=== PATIENT | male | born 1970 | race Caucasian/White ===

== ENCOUNTER 2021-07-23 11:47 | Emergency (ER) | payer BC ==
[2021-07-23] MEDS ORDERED: ALBUTEROL HFA INHALER INHALATION STA (13:15)
--- NOTE | 2021-07-23 13:35 | ED ---
General Adult HPI - General Chief complaint: Abdominal Pain Stated complaint: congestion, abd pain Time Seen by Provider: 07/23/21 12:30 Source: patient, RN notes reviewed, old records reviewed Mode of arrival: ambulatory - History of Present Illness Initial comments: This is a 51-year-old male who presents emergency department stating that on Thursday he started having some congestion and then on Thursday he started coughing and coughing up some yellow greenish sputum and then today he was coughing up some brown or bloody sputum. Patient states the pain in his chest is only there when he coughs per patient states is the rest here comfortably currently he is in no pain. Patient states he also has a little bit of a hernia in his abdomen and that her out hurts when he coughs as well. Again if he remains still and not coughing he does not have any pain in his chest or a bdomen. - Related Data Previous Rx's Medication Instructions Recorded Albuterol Inhaler [Ventolin Hfa 2 puff INHALATION RT-QID #18 gm 07/23/21 Inhaler] Azithromycin [Zithromax Tri-Mason] 500 mg PO DAILY #3 tab 07/23/21 Allergies Allergy/AdvReac Type Severity Reaction Status Date / Time No Known Allergies Allergy Verified 07/23/21 12:37 Review of Systems ROS Statement: Those systems with pertinent positive or pertinent negative responses have been documented in the HPI. ROS Other: All systems not noted in ROS Statement are negative. Past Medical History Past Medical History: Hypertension Additional Past Medical History / Comment(s): hernia History of Any Multi-Drug Resistant Organisms: None Reported Past Surgical History: Orthopedic Surgery Past Psychological History: No Psychological Hx Reported Smoking Status: Former smoker Past Alcohol Use History: Occasional Past Drug Use History: None Reported General Exam - General Exam Comments Initial Comments: GENERAL: Patient is well-developed and well-nourished. Patient is nontoxic and well- hydrated and is in mild distress. ENT: Neck is soft and supple. No significant lymphadenopathy is noted. Oropharynx is clear. Moist mucous membranes. Neck has full range of motion without eliciting any pain. EYES: The sclera were anicteric and conjunctiva were pink and moist. Extraocular movements were intact and pupils were equal round and reactive to light. Eyelids were unremarkable. PULMONARY: Unlabored respirations. Good breath sounds bilaterally. No audible rales rhonchi or wheezing was noted. CARDIOVASCULAR: There is a regular rate and rhythm without any murmurs gallops or rubs. Chest pain is reproducibly tender ABDOMEN: Soft and nontender with normal bowel sounds. Epigastric is mildly tender. SKIN: Skin is clear with no lesions or rashes and otherwise unremarkable. NEUROLOGIC: Patient is alert and oriented x3. Cranial nerves II through XII are grossly intact. Motor and sensory are also intact. Normal speech, volume and content. Symmetrical smile. MUSCULOSKELETAL: Normal extremities with adequate strength and full range of motion. No lower extremity swelling or edema. No calf tenderness. LYMPHATICS: No significant lymphadenopathy is noted PSYCHIATRIC: Normal psychiatric evaluation. Course Vital Signs 07/23/21 12:33 Temperature 98.4 F Pulse Rate 73 Respiratory 18 Rate Blood Pressure 138/81 O2 Sat by Pulse 97 Oximetry Medical Decision Making - Medical Decision Making EKG shows normal sinus rhythm at 72 bpm IN interval is 178 QRSs under QT interval 420 QTC is 459 per patient's EKG shows no ST segment elevation or depression. Chest x-ray shows no acute abnormality. I went back into the room to reevaluate the patient he was sleeping comfortably. I awoke him he stated he felt much better within the happy be discharged home. Patient received 1 g Rocephin emergency department and will be sent home with Zithromax. - Lab Data Result diagrams: 07/23/21 13:47 07/23/21 13:47 Lab Results 07/23/21 07/23/21 07/23/21 Range/Units 13:47 13:47 13:47 WBC 5.2 (3.8-10.6) k/uL RBC 5.01 (4.30-5.90) m/uL Hgb 14.0 (13.0-17.5) gm/dL Hct 43.6 (39.0-53.0) % MCV 87.0 (80.0-100.0) fL MCH 28.0 (25.0-35.0) pg MCHC 32.1 (31.0-37.0) g/dL RDW 14.3 (11.5-15.5) % Plt Count 280 (150-450) k/uL MPV 6.9 Neutrophils % 60 % Lymphocytes % 21 % Monocytes % 7 % Eosinophils % 8 % Basophils % 1 % Neutrophils # 3.1 (1.3-7.7) k/uL Lymphocytes # 1.1 (1.0-4.8) k/uL Monocytes # 0.4 (0-1.0) k/uL Eosinophils # 0.4 (0-0.7) k/uL Basophils # 0.0 (0-0.2) k/uL PT 10.6 (9.0-12.0) sec INR 1.0 (<1.2) APTT 24.0 (22.0-30.0) sec D-Dimer 0.34 (<0.60) mg/L FEU Sodium (137-145) mmol/L Potassium (3.5-5.1) mmol/L Chloride (98-107) mmol/L Carbon Dioxide (22-30) mmol/L Anion Gap mmol/L BUN (9-20) mg/dL Creatinine (0.66-1.25) mg/dL Est GFR (CKD-EPI)AfAm (>60 ml/min/1.73 sqM) Est GFR (CKD-EPI)NonAf (>60 ml/min/1.73 sqM) Glucose (74-99) mg/dL Plasma Lactic Acid Charles (0.7-2.0) mmol/L Calcium (8.4-10.2) mg/dL Magnesium (1.6-2.3) mg/dL Total Bilirubin (0.2-1.3) mg/dL AST (17-59) U/L ALT (4-49) U/L Alkaline Phosphatase (38-126) U/L Troponin I (0.000-0.034) ng/mL Total Protein (6.3-8.2) g/dL Albumin (3.5-5.0) g/dL Coronavirus (PCR) Not Detected (Not Detectd) 07/23/21 07/23/21 07/23/21 Range/Units 13:47 13:47 13:47 WBC (3.8-10.6) k/uL RBC (4.30-5.90) m/uL Hgb (13.0-17.5) gm/dL Hct (39.0-53.0) % MCV (80.0-100.0) fL MCH (25.0-35.0) pg MCHC (31.0-37.0) g/dL RDW (11.5-15.5) % Plt Count (150-450) k/uL MPV Neutrophils % % Lymphocytes % % Monocytes % % Eosinophils % % Basophils % % Neutrophils # (1.3-7.7) k/uL Lymphocytes # (1.0-4.8) k/uL Monocytes # (0-1.0) k/uL Eosinophils # (0-0.7) k/uL Basophils # (0-0.2) k/uL PT (9.0-12.0) sec INR (<1.2) APTT (22.0-30.0) sec D-Dimer (<0.60) mg/L FEU Sodium 139 (137-145) mmol/L Potassium 4.4 (3.5-5.1) mmol/L Chloride 102 (98-107) mmol/L Carbon Dioxide 26 (22-30) mmol/L Anion Gap 11 mmol/L BUN 16 (9-20) mg/dL Creatinine 0.80 (0.66-1.25) mg/dL Est GFR (CKD-EPI)AfAm >90 (>60 ml/min/1.73 sqM) Est GFR (CKD-EPI)NonAf >90 (>60 ml/min/1.73 sqM) Glucose 90 (74-99) mg/dL Plasma Lactic Acid Charles 1.0 (0.7-2.0) mmol/L Calcium 9.4 (8.4-10.2) mg/dL Magnesium 2.2 (1.6-2.3) mg/dL Total Bilirubin 0.6 (0.2-1.3) mg/dL AST 37 (17-59) U/L ALT 58 H (4-49) U/L Alkaline Phosphatase 95 (38-126) U/L Troponin I <0.012 (0.000-0.034) ng/mL Total Protein 7.3 (6.3-8.2) g/dL Albumin 4.5 (3.5-5.0) g/dL Coronavirus (PCR) (Not Detectd) Disposition Clinical Impression: Acute bronchitis Disposition: HOME SELF-CARE Instructions (If sedation given, give patient instructions): Acute Bronchitis (ED) Prescriptions: Albuterol Inhaler [Ventolin Hfa Inhaler] 2 puff INHALATION RT-QID #18 gm Azithromycin [Zithromax Tri-Mason] 500 mg PO DAILY #3 tab Is patient prescribed a controlled substance at d/c from ED?: No Referrals: None,Stated [REFERRING] - 1-2 days Time of Disposition: 14:46
[2021-07-23 14:00] LABS: Basophils % (A) 1 %; Eosinophils # (A) 0.4 k/uL (0-0.7); Eosinophils % (A) 8 %; HCT 43.6 % (39.0-53.0); Lymphocytes # (A) 1.1 k/uL (1.0-4.8); Lymphocytes % (A) 21 %; MCHC 32.1 g/dL (31.0-37.0); Mean Platelet Volume 6.9; Monocytes # (A) 0.4 k/uL (0-1.0); Monocytes % (A) 7 %; Neutrophils # (A) 3.1 k/uL (1.3-7.7); Neutrophils % (A) 60 %; Platelet Count 280 k/uL (150-450); RBC 5.01 m/uL (4.30-5.90); RDW 14.3 % (11.5-15.5); WBC 5.2 k/uL (3.8-10.6)
--- NOTE | 2021-07-23 14:07 | XR ---
EXAMINATION TYPE: XR chest 2V DATE OF EXAM: 07/23/2021 COMPARISON: None HISTORY: 51 year-old male shortness of breath, difficulty breathing TECHNIQUE: PA and lateral views FINDINGS: Heart borderline enlarged. Mild interstitial density especially in the mid and lower lungs. Some patc hy opacity at the cardiac apex. No pleural effusion. Somewhat low lung volumes. IMPRESSION: 1. Borderline heart size. 2. Mild increased interstitial density could reflect bronchitis or chronic asthma. Correlate to exclu de mild pulmonary vascular congestion. 3. Mild patchy atelectasis or early infiltrate at the left base.
[2021-07-23 14:09] LABS: ALT 58 U/L (4-49); AST 37 U/L (17-59); African American GFR (CKD) >90 (>60 ml/min/1.73 sqM); Albumin 4.5 g/dL (3.5-5.0); Alkaline Phosphatase 95 U/L (38-126); Anion Gap 11 mmol/L; Blood Urea Nitrogen 16 mg/dL (9-20); Calcium 9.4 mg/dL (8.4-10.2); Carbon Dioxide 26 mmol/L (22-30); Chloride 102 mmol/L (98-107); Glucose 90 mg/dL (74-99); Magnesium 2.2 mg/dL (1.6-2.3); Non-African American GFR(CKD) >90 (>60 ml/min/1.73 sqM); Potassium 4.4 mmol/L (3.5-5.1); Sodium 139 mmol/L (137-145); Total Bilirubin 0.6 mg/dL (0.2-1.3); Total Protein 7.3 g/dL (6.3-8.2)
[2021-07-23 14:23] LABS: Prothrombin Time 10.6 sec (9.0-12.0)
[2021-07-23] MEDS ORDERED: cefTRIAXone IN SWFI 1,000 MG/10 ML SYRINGE IVP STA (14:47)
[2021-07-23 15:07] VITALS: BP 136/80; PULSE 70; RESP 16; TEMP 98.1
== END 2021-07-23 15:07 | disposition home or self-care (01) ==
LOC: EC 11:47
DX: J20.9 Acute bronchitis, unspecified (principal); I10 Essential (primary) hypertension; Z20.822 Contact with and (suspected) exposure to COVID-19; Z87.891 Personal history of nicotine dependence
CPT/HCPCS: 99285; 96374; 36415; 94640; 93005; 85379; 80053; 83605; 83735; 84484; 85025; 85610; 85730; 87635; 71046; J0696

== ENCOUNTER → 2021-09-11 | Outpatient (CLI) | payer BC ==
--- NOTE | 2021-09-12 09:00 | ECHOF ---
Referral Reason:I27.20 MEASUREMENTS -------- HEIGHT: 172.7 cm WEIGHT: 140.6 kg BP: RVIDd: 3.1 cm (< 3.3) IVSd: 1.4 cm (0.6 - 1.1) LVIDd: 4.3 cm (3.9 - 5.3) LVPWd: 1.5 cm (0.6 - 1.1) IVSs: 2.4 cm LVIDs: 2.1 cm LVPWs: 2.2 cm Ao Diam: 3.4 cm (2.0 - 3.7) AV Cusp: 2.1 cm (1.5 - 2.6) LA Diam: 3.4 cm (2.7 - 3.8) MV EXCURSION: 18.221 mm (> 18.000) MV EF SLOPE: 183 mm/s (70 - 150) EPSS: 0.7 cm MV E Jean: 0.94 m/s MV DecT: 216 ms MV A Jean: 0.66 m/s MV E/A Ratio: 1.42 RAP: 5.00 mmHg RVSP: 11.51 mmHg FINDINGS -------- This was a technically difficult study with suboptimal views. The left ventricular size is normal. There is moderate concentric left ventricular hypertrophy. O verall left ventricular systolic function is normal with, an EF between 55 - 60 %. The left atrial size is normal. The right atrial size is normal. xx ml of Lumason was utilized for enhancement of images. The aortic valve is trileaflet and appears structurally normal. The mitral valve is normal. There is trace mitral regurgitation. The tricuspid valve appears structurally normal. Trace tricuspid regurgitation present. Right lilliana tricular systolic pressure is normal at < 35 mmHg. There is no pulmonic regurgitation present. The aortic root size is normal. IVC Not well visulized. There is no pericardial effusion. CONCLUSIONS -------- 1. The left ventricular size is normal. 2. There is moderate concentric left ventricular hypertrophy. 3. Overall left ventricular systolic function is normal with, an EF between 55 - 60 %. 4. There is trace mitral regurgitation. 5. Trace tricuspid regurgitation present. 6. There is no pericardial effusion. ESTATE AGENT: Rachael Gaming RD
== END | disposition home or self-care (01) ==
LOC: RADECHMAIN 15:21
PROVIDERS: ATTEND Internal Medicine
DX: I08.1 Rheumatic disorders of both mitral and tricuspid valves (principal); I27.20 Pulmonary hypertension, unspecified
CPT/HCPCS: 93306; Q9950

== ENCOUNTER → 2022-02-14 | Outpatient (CLI) | payer BC ==
--- NOTE | 2022-02-16 08:24 | US ---
EXAMINATION TYPE: US arterial LE multi level DATE OF EXAM: 02/14/2022 1:28 PM CLINICAL HISTORY: E11.8 TYPE 2 DIABETES MELLITUS w/complications. Hair loss on legs. Cramping x 30 ye ars. History of diabetes and hypertension along with hyperlipidemia Doppler Waveforms: Right: Multiphasic Left: Multiphasic Ankle-Brachial Indices: Right: 1.14 Left: 1.13 Toe Brachial Indices: Right: 0.95 Left: 0.77 IMPRESSION: Normal study
== END | disposition home or self-care (01) ==
LOC: RADUSWWP 12:37
PROVIDERS: ATTEND Internal Medicine
DX: E11.8 Type 2 diabetes mellitus with unspecified complications (principal); I10 Essential (primary) hypertension
CPT/HCPCS: 93923

== ENCOUNTER 2023-11-01 09:08 | Emergency (ER) | payer BC ==
[2023-11-01 09:31] VITALS: PULSE 70; RESP 20
--- NOTE | 2023-11-01 09:35 | ED ---
Fall HPI - General Chief Complaint: Head Injury Stated Complaint: fell down stairs eye laceration Time Seen by Provider: 11/01/23 09:17 Source: patient, RN notes reviewed Mode of arrival: ambulatory Limitations: no limitations - History of Present Illness Initial Comments: This is a 53-year-old male who presents to the emergency department for a fall. Patient went to take his dog out this morning, when he tripped and fell down about 5 steps, and slammed his face into a cement wall. Also states that he injured his mid to lower back and has pain to the right hip. Also has a laceration to the lateral aspect of his right eye. Denies any loss of consciousness. Not taking any blood thinners. Tetanus vaccine is up-to-date. MD Complaint: fall - Related Data Previous Rx's Medication Instructions Recorded Albuterol Inhaler [Ventolin Hfa 2 puff INHALATION RT-QID #18 gm 07/23/21 Inhaler] Azithromycin [Zithromax Tri-Mason] 500 mg PO DAILY #3 tab 07/23/21 Allergies Allergy/AdvReac Type Severity Reaction Status Date / Time No Known Allergies Allergy Verified 11/01/23 09:22 Review of Systems ROS Statement: Those systems with pertinent positive or pertinent negative responses have been documented in the HPI. ROS Other: All systems not noted in ROS Statement are negative. Past Medical History Past Medical History: Hypertension Additional Past Medical History / Comment(s): hernia History of Any Multi-Drug Resistant Organisms: None Reported Past Surgical History: Orthopedic Surgery Past Psychological History: No Psychological Hx Reported Smoking Status: Former smoker Past Alcohol Use History: Occasional Past Drug Use History: None Reported General Exam Limitations: no limitations General appearance: alert, in no apparent distress Head exam: Present: other (Jagged 3 cm laceration lateral to the right eye. Minor active bleeding.) Eye exam: Present: normal appearance, PERRL, EOMI. Absent: scleral icterus, conjunctival injection, periorbital swelling Respiratory exam: Present: normal lung sounds bilaterally. Absent: respiratory distress, wheezes, rales, rhonchi, stridor Cardiovascular Exam: Present: regular rate, normal rhythm, normal heart sounds. Absent: systolic murmur, diastolic murmur, rubs, gallop, clicks Extremities exam: Present: other (Tenderness palpation over the right greater trochanter. No deformities, swelling, or ecchymosis.) Back exam: Present: tenderness (Lower thoracic/upper lumbar spine) Neurological exam: Present: alert, oriented X3, CN II-XII intact Psychiatric exam: Present: normal affect, normal mood Course Vital Signs 11/01/23 11/01/23 11/01/23 09:19 10:13 11:47 Temperature 97.9 F 98.6 F Pulse Rate 70 70 Respiratory 20 20 20 Rate Blood Pressure 170/70 128/87 135/83 O2 Sat by Pulse 96 Oximetry Procedures - Laceration Laceration #1 Consent Obtained: verbal consent Indication: laceration Site: face Size (cm): 3 Description: stellate, flap Depth: simple, single layer Type of Sutures: other (Exofin) Medical Decision Making - Medical Decision Making This is a 53-year-old male who presents to the emergency department for a fall. Was pt. sent in by a medical professional or institution? @ -No Did you speak to anyone other than the patient for history? @ -No Did you review nursing and triage notes? @ -Yes, and I agree, it is accurate with regards to the patient's symptoms. Were old charts reviewed? @ -No Differential Diagnosis? @ -Differential Diagnosis Head Injury: Contusion, hematoma, intracranial hemorrhage, skull fracture, whiplash, concussion, this is not meant to be an all-inclusive list. EKG interpreted by me (3pts min.)? @ -Not obtained X-rays interpreted by me (1pt min.)? @ -X-ray of the right hip, lumbar spine, and thoracic spine obtained. My interpretation identifies no acute fractures. CT interpreted by me (1pt min.)? @ -Computed tomography scan of the facial bones, brain, and c-spine obtained. My interpretation identifies no evidence of an acute intracranial hemorrhage, skull fracture, or cervical spine fracture. U/S interpreted by me (1pt. min.)? @ -Not obtained What testing was considered but not performed? (CT, X-rays, U/S, labs)? Why? @ -None What meds were considered but not given? Why? @ -None Did you discuss the management of the patient with other professionals? @ -No Did you reconcile home meds? @ -No Was smoking cessation discussed for >3mins.? @ -No Was critical care preformed (if so, how long)? @ -No Were there social determinants of health that impacted care today? How? (Homelessness, low income, unemployed, alcoholism, drug addiction, transportation, low edu. Level, literacy, decrease access to med. care, usp, rehab)? @ -No Was there de-escalation of care discussed even if they declined? (Discuss DNR or withdrawal of care, Hospice)? @ -No What co-morbidities impacted this encounter? (DM, HTN, Smoking, COPD, CAD, Cancer, CVA, Hep., AIDS, mental health diagnosis, sleep apnea, morbid obesity)? @ -None Was patient admitted / discharged? @ -Discharged. CT scan of the facial bones, brain, and C-spine obtained de monstrating tiny radiopaque foreign bodies in the right preseptal tissues. No acute process otherwise identified. X-ray of the right hip, thoracic spine, and lumbar spine obtained also revealing no acute findings. Tetanus vaccine is already up-to-date. He did have what appeared to be gravel or residual cement in his laceration. His wound was irrigated and cleansed and I was able to remove the foreign bodies. Laceration closed with Exofin. Advised ibuprofen and Tylenol as needed for pain relief. Patient discharged home in stable condition. Undiagnosed new problem with uncertain prognosis? @ -None Drug Therapy requiring intensive monitoring for toxicity (Heparin, Nitro, Insulin, Cardizem)? @ -None Were any procedures done? @ -Laceration repair with exofin Diagnosis/symptom? @ -Fall, head injury, laceration Acute, or Chronic, or Acute on Chronic? @ -Acute Uncomplicated (without systemic symptoms) or Complicated (systemic symptoms)? @ -Uncomplicated Side effects of treatment? @ -None Exacerbation, Progression, or Severe Exacerbation] @ -Not applicable Poses a threat to life or bodily function? @ -No Return precautions reviewed in depth, the patient is instructed to return to the emergency department with any new, worsening, or concerning symptoms. Patient verbalized understanding. This case was discussed in detail with the attending ED physician, Dr. Morin. Presentation, findings, and treatment plan discussed in detail as well. - Radiology Data Radiology results: report reviewed, image reviewed Disposition Clinical Impression: Fall, Head injury, Laceration Disposition: HOME SELF-CARE Instructions (If sedation given, give patient instructions): Skin Adhesive Care (ED) Additional Instructions: Return to the emergency department with any new, worsening, or concerning s ymptoms. Alternate with ibuprofen and Tylenol as needed for pain relief. Follow up with your primary care provider in 1-2 days. Is patient prescribed a controlled substance at d/c from ED?: No Referrals: Zhang Stark MD [Primary Care Provider] - 1-2 days Time of Disposition: 11:17
--- NOTE | 2023-11-01 10:09 | CT ---
EXAMINATION TYPE: CT brain jossy hayden DATE OF EXAM: 11/01/2023 COMPARISON: None HISTORY: fall, neck pain and right eye laceration CT DLP: 1590.5 mGycm Automated exposure control for dose reduction was used. TECHNIQUE: CT scan of the head and cervical spine are performed without contrast. FINDINGS: Head CT: Ventricles, basal cisterns and sulci over the convexities within normal limits and there is no mass e ffect or shift of midline structures. No abnormal density is seen throughout the brain parenchyma and there is no acute intra or extra-axia l hemorrhage. The posterior fossa including the brainstem, fourth ventricle and cerebellar pontine angles appear gr ossly normal. Intraorbital contents appear normal and symmetric. There are mild chronic inflammatory changes in the maxillary sinuses with mucous retention cysts or p olyps. The calvarium is intact. CT cervical spine: The craniovertebral junction relationships and prevertebral soft tissues are normal. The cervical vertebral segments are normal in height and alignment and there is no fracture or sublux ation. The disc spaces are well-maintained in height. There is minimal degeneration of the uncovertebral kendall nts. The facet joints are intact. There is no bony encroachment of the cervical canal. There is minimal bony encroachment of the right neural foramina at C4-5, C5-6 and C6-7. Impression 1. No acute bleed or mass effect intracranially. 2. Calvarium is intact. 3. No cervical spine trauma
[2023-11-01] MEDS: TOPICAL SKIN ADHESIVE 1 EACH AMP TOPICAL ONE (10:13)
--- NOTE | 2023-11-01 10:14 | CT ---
EXAMINATION TYPE: CT facial bones wo con DATE OF EXAM: 11/01/2023 COMPARISON: None HISTORY: fall, neck pain and right eye laceration CT DLP: 1590.5 mGycm Automated exposure control for dose reduction was used. TECHNIQUE: CT scan of the sinuses is performed without contrast, axial images are obtained, coronal r eformatted images are also reviewed. FINDINGS: The facial bones are intact without fracture or focal intraosseous abnormality. 2 tiny radiopaque foreign bodies in the preseptal tissues on the right laterally. The largest of the 2 adjacent foreign bodies measures 3.6 mm. The intraorbital contents are normal and symmetric. The paranasal sinuses are well aerated. The mastoid air cells and middle ear cavities are well aerated. IMPRESSION: 1. No facial bone fracture. 2. Normal paranasal sinuses and mastoid air cells. 3. Tiny radiopaque foreign bodies in the right preseptal soft tissues.
--- NOTE | 2023-11-01 10:16 | XR ---
Thoracic spine. HISTORY: Pain following trauma COMPARISON: None TECHNIQUE: 3 views of thoracic spine were obtained. FINDINGS: The thoracic vertebral segments are normal in height and alignment there is no fracture or subluxatio n. There is no scoliosis. There is mild degenerative disc disease at multiple levels evidenced by mild spondylosis but the disc spaces are fairly well-maintained in height. The paraspinal soft tissues unremarkable. IMPRESSION: Mild degenerative changes but no acute trauma.
--- NOTE | 2023-11-01 10:18 | XR ---
Right hip HISTORY: Pain following trauma COMPARISON: None. TECHNIQUE: 2 views right hip were obtained. FINDINGS: There is no fracture, dislocation, interosseous, and intra-articular or soft tissue abnormality. IMPRESSION: No evidence of trauma. No significant abnormality seen.
--- NOTE | 2023-11-01 10:18 | XR ---
Lumbar spine. HISTORY: Back pain following trauma. COMPARISON: None. TECHNIQUE: 3 views of the lumbar spine were obtained. FINDINGS: The lumbar vertebral segments are normal in height and alignment is no fracture or subluxation. The sacrum and SI joints are intact. There is no scoliosis. There is no significant degenerative disc disease. IMPRESSION: No evidence of acute trauma. No significant abnormality.
[2023-11-01] MEDS: LIDOCAINE/EPINEPHR/TETRACAINE 5 ML BOTTLE TOPICAL ONE (10:52)
[2023-11-01 12:17] VITALS: BP 135/83; TEMP 98.6
== END 2023-11-01 11:51 | disposition home or self-care (01) ==
LOC: EC 09:08
DX: S01.111A Laceration without foreign body of right eyelid and periocular area, initial encounter (principal); M25.551 Pain in right hip; M54.50 Low back pain, unspecified; M54.6 Pain in thoracic spine; Z87.891 Personal history of nicotine dependence; W10.9XXA Fall (on) (from) unspecified stairs and steps, initial encounter
CPT/HCPCS: 12013; 70450; 70486; 72072; 72100; 72125; 73502; 99284

== ENCOUNTER → 2024-01-15 | Outpatient (CLI) | payer BC ==
--- NOTE | 2024-01-16 08:00 | MR ---
EXAMINATION TYPE: MR brain wo/w con DATE OF EXAM: 01/15/2024 6:43 PM CLINICAL INDICATION:Male, 53 years old with history of R270 ATAXIA, UNSPECIFIED; PHH, Dizziness and l oss of balance, ataxia. trauma to head from fall on stairs COMPARISON: 11/01/2023 TECHNIQUE: Multi planar, multi sequence imaging was performed through the brain including: T1, T2, In version recovery, susceptibility weighted imaging and gradient echo imaging and Diffusion weighted im aging. The patient was then given intravenous contrast and multi planar, T1 fat-saturation images wer e obtained. IV Contrast: 13 cc Gadavist FINDINGS: The carrillo-white junctions, ventricular system, basal cisterns appear unremarkable. Diffusion-weighted imaging shows no evidence of restricted diffusion to suggest acute/subacute infarct. Intracranial ar terial flow voids are maintained. Midline structures show no abnormality. Scattered foci of high T2 s ignal intensity are seen within the periventricular white matter. The susceptibility weighted images do not reveal any evidence for micro-hemorrhage. After administration of gadolinium, no abnormal enha ncement is seen. The bone marrow signal is within normal limits. Paranasal sinuses and mastoid air cells: No significant paranasal sinus disease. Visualized orbits: Orbital contents are intact. IMPRESSION: 1. No evidence of intracranial mass, acute/subacute infarct, or abnormal enhancement. 2. Nonspecific white matter changes, likely related to small vessel ischemic disease.
== END | disposition home or self-care (01) ==
LOC: RADMRIMAIN 17:55
PROVIDERS: ATTEND Internal Medicine
DX: R27.0 Ataxia, unspecified (principal); R90.82 White matter disease, unspecified
CPT/HCPCS: 70553; A9585

== ENCOUNTER → 2025-02-17 | Outpatient (CLI) | payer BC ==
--- NOTE | 2025-02-17 11:24 | CA ---
Transthoracic Echo Report Name: Suraj Villa Age: 54 Gender: M : 1970 Exam Date: 02/17/2025 08:42 Exam Location: [place] [facility] Ht (in): 68 Wt (lb): 310 Ordering Physician: Zhang Stark MD Attending/Referring Phys: Mercury Recoverer Yajaira West RDCS Procedure CPT: Indications: Z82.49 FAMILY HX OF ISCHEM HEART DIS AND OTH DIS O Cardiac Hx: Technical Quality: Fair Contrast 1: Definity Total Dose (mL): 2 Contrast 2: Total Dose (mL): MEASUREMENTS (Male / Female) Normal Values 2D ECHO LV Diastolic Diameter PLAX 5.1 cm 4.2 - 5.9 / 3.9 - 5.3 cm LV Systolic Diameter PLAX 4.1 cm IVS Diastolic Thickness 1.3 cm 0.6 - 1.0 / 0.6 - 0.9 cm LVPW Diastolic Thickness 1.3 cm 0.6 - 1.0 / 0.6 - 0.9 cm LV Relative Wall Thickness 0.5 RV Internal Dim ED PLAX 2.8 cm LA Systolic Diameter LX 4.2 cm 3.0 - 4.0 / 2.7 - 3.8 cm LV Diastolic Volume MOD 4C 118.6 cm??? LV Systolic Volume MOD 4C 36.0 cm??? LV Ejection Fraction MOD 4C 69.7 % LV Cardiac Index MOD 4C 1854.1 cm???/min???m??? LV Diastolic Length 4C 8.6 cm LV Systolic Length 4C 6.4 cm M-MODE Aortic Root Diameter MM 3.2 cm LA Systolic Diameter MM 4.0 cm LA Ao Ratio MM 1.2 AV Cusp Separation MM 2.1 cm DOPPLER Mitral E Point Velocity 74.6 cm/s Mitral A Point Velocity 60.4 cm/s Mitral E to A Ratio 1.2 MV Deceleration Time 223.0 ms MV E' Velocity 12.2 cm/s Mitral E to MV E' Ratio 6.1 TR Peak Velocity 233.1 cm/s TR Peak Gradient 21.7 mmHg FINDINGS Left Ventricle Left ventricular ejection fraction is estimated at 55-60%. Mildly increased septal wall thickness. Normal left ventricular systolic function with no obvious regional wall motion abnormalities. Left ventricular cavity size normal. Right Ventricle Mild right ventricular dilatation. Normal right ventricular global systolic function. Right ventricular systolic pressure within normal limits. Right Atrium Mild right atrial dilatation. Left Atrium Mildly increased left atrial diameter. Mitral Valve Structurally normal mitral valve. Trace to mild mitral regurgitation. No mitral stenosis. Aortic Valve Trileaflet aortic valve. No aortic valve stenosis or regurgitation. Tricuspid Valve Structurally normal tricuspid valve. Mild tricuspid regurgitation. No tricuspid stenosis. Pulmonic Valve Structurally normal pulmonic valve. Trace pulmonic regurgitation. No pulmonic stenosis. Pericardium No pericardial or pleural effusion. Aorta Normal size aortic root and proximal ascending aorta. CONCLUSIONS Referred by Dr. Stark for evaluation, family history of ischemic heart disease. LVH with preserved systolic function Previewed by: Dr. Caleb Gomez MD (Electronically Signed) Final Date: 17 February 2025 11:23
--- NOTE | 2025-02-17 13:38 | NM ---
EXAMINATION TYPE: NM stress lexiscan cardiolite DATE OF EXAM: 02/17/2025 COMPARISON: NONE CLINICAL INDICATION: Male, 54 years old with history of Z82.49 FAMILY HX OF ISCHEMIC HEART DIS AND OT H DIS O; personal history of hypertension, hypercholesteremia, and diabetes. Symptoms of difficulty b reathing. TECHNIQUE: After the intravenous administration of 10 mCi Tc 99m Sestamibi - Cardiolite resting SPEC T images acquired 47 minutes post injection. The patient received 0.4mg Lexiscan, 26 mCi Tc 99m Sestamibi - Stress images obtained 45 minutes post injection FINDINGS: Review of stress and rest SPECT images demonstrates no distinct perfusion abnormality. Gated analysi s shows normal wall motion with an estimated left ventricular ejection fraction of 63 %. IMPRESSION: No scintigraphic evidence for reversible ischemia. [facility], , 02/17/2025 1:36 PM
--- NOTE | 2025-02-17 18:53 | CA ---
Lexiscan Nuclear Stress Test Report Name: Suraj Villa Exam Date: 02/17/2025 10:30 Exam Location: [facility] [facility] Ht (in): 68 Wt (lb): 310 BSA: 2.46 Ordering Phys: Zhang Aggarwal MD Referring Phys: ZHANG AGGARWAL Technologist: DAVID Age: 54 Gender: M : 1970 Procedure CPT: Indications: Z82.49 FAMILY HX OF ISCHEM HEART DIS AND OTH DIS O ICD-10 Codes: Patient History: Shortness of breath, diabetes and family history of heart disease Medications: Meds past 24 hrs: Pretest Chest Pain: STRESS TEST Lexiscan Protocol Exercise Duration (min:sec): 01:[address] Depressions (mm): Angina Score: 2 Redd Score: Resting HR (bpm): 75 Peak HR (bpm): 93 Resting BP (mmHg): 151 / 88 Peak BP (mmHg): 138 / 66 MPHR: 167 Target HR: 142 % MPHR: 56 METS: 1.0 Total Dose: Peak Dose: Atropine: Double Product: 70399 BP Response: Stress Termination: INFUSION COMPLETE Stress Symptoms: NO SYMPTOMS Stress Summary: ECG ANALYSIS Resting ECG: Stress ECG: CONCLUSIONS Reason: Shortness of breath and chest discomfort. Risk factors of hypertension diabetes dyslipidemia No ECG evidence for ischemia or arrhythmia during Lexiscan infusion Nuclear portion will be reported separately Dr. Caleb Gomez MD (Electronically Signed) Final Date: 17 February 2025 18:52
== END | disposition home or self-care (01) ==
LOC: RADNMMAIN 08:05
PROVIDERS: ATTEND Internal Medicine
DX: E11.9 Type 2 diabetes mellitus without complications (principal); E78.00 Pure hypercholesterolemia, unspecified; I10 Essential (primary) hypertension; Z82.49 Family history of ischemic heart disease and other diseases of the circulatory system
CPT/HCPCS: 93017; 93306; 78452; A9500; Q9957